=== PATIENT | female | born 1980 | race Caucasian/White ===

== ENCOUNTER 2022-10-22 09:42 | Inpatient (IN) | payer OTHER, SELFPAY ==
[2022-10-15 08:28] VITALS: BMI 23.5
[2022-10-22] VITALS (18 sets, daily range): BP systolic 126–186; BP diastolic 75–103; PULSE 67–90; RESP 12–22; TEMP 36.3–36.7; O2SAT 95–99; BMI 23.5
[2022-10-22] MEDS: LACTATED RINGERS 1,000 ML 42 ML IV ×2 (10:38→13:01)
--- NOTE | 2022-10-22 11:17 | PM.PREOP ---
Pre-operative Note COVID-19 Criteria for continued procedure: Expected advancement of disease process, Possibility delay results in more complex future surgery or treatment, Increased loss of function, Continuing or worsening of significant or severe pain, Deterioration of the patient's condition or overall health and Delay expected to result in less-positive ultimate med/surg outcome Interval Note History & Physical reviewed/Exam performed by Physician: Yes Changes to H&P: No
[2022-10-22] MEDS: CEFAZOLIN 2 GM/100 ML PREMIX 100 ML IV ×2 (11:48→20:22)
--- NOTE | 2022-10-22 12:12 | SUR.OPER ---
Supine, head on gel donut. Arms padded with gel pads, tucked at sides, towel roll under shoulders. Safety belt at thigh. Legs uncrossed.
[2022-10-22] MEDS: BUPIVACAINE 0.25% W/ EPI (PF) 10 ML VIAL INJ (12:17)
--- NOTE | 2022-10-22 13:53 | PM.OP.1 ---
Operative Date/Time/Diagnoses Date of procedure: 10/22/22 Time of procedure: 12:00 Pre-op diagnosis: 1. C5-6, C6-7 spinal stenosis 2. Cervical spondylosis with radiculopathy Post-op diagnosis: same Procedure & Clinicians Procedure: 1. C5-6 C6-7 anterior cervical diskectomy and fusion 2. C5-6 C6-7 anterior interbody cage placement 3. C5-6 C6-7 anterior instrumentation with plate and screw placement in C5-C6 and C7 vertebrae 4. Utilization of microsurgical technique and operating microscope Same procedure as scheduled: Yes Indications: Patient has been having chronic neck pain and worsening cervical radiculopathy. Patient failed multiple conservative management with worsening pain weakness and numbness in her upper extremity. Patient has been having difficulty performing activity of daily living. After discussing risks benefits of treatment options, patient elected proceed with surgery. Surgeon: Andres Stroud Superintendent Plant: Kamla Platt Click Yes if Unassisted: Yes Anesthesia Type: General Operative Notes Closure Type: primary Specimen(s): none sent Prosthetic devices, grafts, tissues, transplants, or devices: Globus Extend Plate, Hedron C cages Estimated Blood Loss (mL): 5 Blood products transfused: none Procedure in detail: Patient was seen in the preoperative area. Risks and benefits of the surgery was discussed with the patient. Operative consent was obtained and placed in the chart. Patient was then taken to the operative room. Prophylactic antibiotic was given less than 0.5 hr prior to skin incision. General anesthesia was administered. Patient was placed into a supine position on her radiolucent table. Bilateral shoulders were taped down to allow proper C-arm imaging. Anterior cervical area was prepped and draped in a sterile fashion. Time-out was performed at this time. Using lateral C-arm imaging, the level between C5 and C7 was identified and marked on patient's neck. A oblique incision from midline towards medial border of sternocleidomastoid muscle was made. The platysma muscle was incised in line with skin incision. Metzenbaum scissor was used to develop the plane between the medial border of sternocleidomastoid d and the strap muscles medially. The carotid sheath and its contents were identified and protected behind the hand-held retractor during the entire case. The plane between the carotid sheath and strap muscles was developed with Metzenbaum scissors. Dissection was made down to the level of the anterior cervical fascia. Longus colli muscle was incised on the anterior aspect of vertebral bodies bilaterally from C5-C7. Spinal needle was placed into the C5-6 disc space and confirmed with lateral C-arm imaging. Using microsurgical technique and operative microscope, anterior cervical diskectomy was performed at C5-6 and C6-7 level. This was done by removing the disc material, removing the anterior and posterior osteophytes posterior longitudinal ligaments along with performing bilateral foraminotomies at both levels. Patient was found to have severe central and foraminal stenosis at both levels. Patient's stenosis was fully decompressed after decompression was completed. After the diskectomy was completed, 2 anterior interbody cages were obtained. The cages were packed with globus via cell bone grafting material. One cage each along with the bone grafting material was then packed into the interbody spaces from C5-C7 with one cage into each interbody level. After the cages were placed, the anterior cervical plate was stabilized to the C5-C7 vertebrae using 2 screws at each each level. Total 6 screws were placed. After confirming placement of the hardware with AP and lateral C-arm imaging, the screws were locked into the plate using the locking mechanism and torque limiting screwdriver. After the hardware was placed and confirmed with AP and lateral C-arm imaging, the wound was irrigated with sterile normal saline. The platysma muscle and the subcutaneous tissue was closed with 2-0 Vicryl. The skin was closed with 4-0Monocryl and Steri-Strips. Patient tolerated the procedure well. Patient was transferred recovery room in stable condition. There were no complications. Complications: none Post-operative Condition: stable Disposition: PACU Plan for aftercare: Admit to inpatient hospital
--- NOTE | 2022-10-22 14:03 | DI.RAD.S_ITS ---
PROCEDURE: XR CERVICAL SPINE 2V OR 3V INDICATIONS: C5-6,C6-7 ACDF TECHNIQUE: 2 low resolution fluoroscopic intraoperative spot films were obtained COMPARISON: None. FINDINGS: Submitted images show discectomy and fusion with anterior plate and screw hardware at C5-6 and C6-7 is labeled in the exam history IMPRESSION: Fluoroscopic guidance Approved by: Jasiel Rodriguez M.D. on 10/22/2022 at 16:13
[2022-10-22] MEDS: LABETALOL 20 MG/4 ML SYRINGE 5 MG IV ×4 (14:49→15:05)
--- NOTE | 2022-10-22 15:29 | SUR.PHASEI ---
Notified Jax Olivo CRNA of blood pressure 155/98 after 20mg labetolol. No new orders. Cleared to be transfered to her room.
[2022-10-22] MEDS: ACETAMINOPHEN 325 MG TABLET 650 MG PO (17:54)
[2022-10-22] MEDS: hydrOXYzine pamoate 25 MG CAPSULE PO (20:21)
[2022-10-22] MEDS: ONDANSETRON 4 MG/2 ML INJ IV (20:21)
--- NOTE | 2022-10-22 21:04 | DI.RAD.S_ITS ---
PROCEDURE: XR CHEST 1V INDICATIONS: Chest Pain TECHNIQUE: One view of the chest was acquired. COMPARISON: None. FINDINGS: Surgical changes and devices: None. Lungs and pleura: Lungs are clear. No pleural effusions or pneumothorax. Mediastinum: Mediastinal contours appear normal. Heart size is normal. Bones and chest wall: No suspicious bony lesions. Overlying soft tissues appear unremarkable. IMPRESSION: 1. No acute cardiopulmonary disease. Dictated by: Matthias Ramirez M.D. on 10/22/2022 at 22:17 Approved by: Matthias Ramirez M.D. on 10/22/2022 at 22:29
[2022-10-22] MEDS: LACTATED RINGERS 1,000 ML 125 ML IV (21:10)
--- NOTE | 2022-10-22 21:21 | DI.CT.S_ITS ---
PROCEDURE: CT ANGIO CHEST PE PROTOCOL INDICATIONS: Chest pain TECHNIQUE: After the administration of intravenous contrast, 2 mm thick sections acquired from the pulmonary apices to the posterior costophrenic angles. 3-dimensional maximum intensity projection (MIP) coronal and sagittal reformats were then acquired through the thorax. For radiation dose reduction, the following was used: automated exposure control, adjustment of mA and/or kV according to patient size. COMPARISON: None. FINDINGS: Image quality: Excellent. Pulmonary arteries: Pulmonary arteries are normal in size, and demonstrate no intraluminal filling defects to suggest central pulmonary embolism. Lower Neck: There are postsurgical changes within the visualized neck including prevertebral and left-sided fluid and edema as well as subcutaneous emphysema. Thyroid: Visualized thyroid demonstrates no discrete nodules. Axillae: No lymphadenopathy by size criteria. Chest Wall: Unremarkable. Bones: There are postsurgical changes consistent with ACDF in the lower cervical spine. Visualized osseous structures demonstrate no suspicious lesions. Lungs and Airways: No acute consolidation. There is mild dependent atelectasis. There are mild paraseptal emphysematous changes. A few bilateral pulmonary nodules are present. These include a peripheral left lower lobe nodule measuring up to 0.9 cm extending to the major fissure on series 6, image 182. A subpleural right middle lobe nodule measures up to 0.5 cm on series 6, image 173. Subpleural left upper lobe 0.5 cm nodule on series 6, image 153. Subpleural linear nodules demonstrated medially in the left upper lobe measuring 0.5 cm on series 6, image 129. A few additional scattered smaller nodules are also demonstrated in the left upper lobe. The trachea and central airways are patent. Pleura: No pneumothorax or pleural effusions. Heart: Heart size is normal. No pericardial effusion. Thoracic Vessels: The thoracic aorta is normal in size. Mediastinum and Tami: A small amount of pneumomediastinum is demonstrated superiorly consistent with sequelae of postsurgical changes in the neck. No lymphadenopathy by size criteria. Esophagus: No wall thickening. No hiatal hernia. Abdomen: Visualized upper abdominal solid organs appear normal in the early arterial phase of enhancement. IMPRESSION: 1. No evidence of pulmonary embolism. 2. Mild dependent atelectasis without acute consolidation. 3. Mild centrilobular emphysematous changes. 4. Multiple bilateral pulmonary nodules measuring up to 0.9 cm in the left lower lobe. The findings are nonspecific and follow-up is recommended in 3-6 months to demonstrate stability. 5. Postsurgical changes in the neck and superior mediastinum consistent with recent ACDF in the lower cervical spine. Dictated by: Matthias Ramirez M.D. on 10/22/2022 at 22:38 Approved by: Matthias Ramirez M.D. on 10/22/2022 at 22:44
[2022-10-22 22:18] LABS: Add Manual Diff / Slide Review NO; Basophils Absolute Auto 200 /uL (0-100); Basophils Percent Auto 1.4 % (0-2); Eosinophils Absolute Auto 0 /uL (0-450); Hematocrit 38.4 % (36-46); Hemoglobin 13.1 g/dL (12.0-16.0); Lymphocytes Absolute Auto 600 /uL (1100-4500); Lymphocytes Percent Auto 4.2 % (25-40); Mean Corpuscular HGB Conc 34.1 % (30-36); Mean Corpuscular Hemoglobin 31.9 PG (26-34); Mean Corpuscular Volume 93.3 fL (80-100); Monocytes Absolute Auto 500 /uL (0-900); Monocytes Percent Auto 3.1 % (3-14); Neutrophils Absolute Auto 13500 /uL (1500-7000); Neutrophils Percent Auto 91.3 % (50-75); Platelet Count 263 X10^3/uL (150-400); Red Blood Cell Count 4.11 X10^6/uL (4.0-5.2); Red Cell Distribution Width 13.7 % (11.6-14.8); White Blood Cell Count 14.8 X10^3/uL (4.5-11.0)
[2022-10-22 22:31] LABS: Albumin Globulin Ratio 1.3 (1.0-2.8); Alkaline Phosphatase 55 U/L (38-126); Aspartate Aminotransferase 38 IU/L (14-36); BUN Creatinine Ratio 16.7 (6-22); Bilirubin Total 0.4 mg/dL (0.2-1.3); Blood Urea Nitrogen 8 mg/dL (7-17); Calcium 8.6 mg/dL (8.4-10.2); Carbon Dioxide 23 mmol/L (22-32); Chloride 103 mmol/L (98-107); Estimated Glomerular Filt Rate > 60 mL/min (>60); Glucose 159 mg/dL (70-100); HEMOLYSIS < 15 (0-50); Sodium 134 mmol/L (137-145)
[2022-10-22 22:37] LABS: Alanine Aminotransferase 37 IU/L (<35)
[2022-10-22 22:42] LABS: Troponin I < 0.012 ng/mL (0.01-0.034)
[2022-10-23 04:55] VITALS: BP 155/88; PULSE 93; RESP 18; TEMP 37.2; O2SAT 96
[2022-10-23] MEDS: CEFAZOLIN 2 GM/100 ML PREMIX 100 ML IV (04:56)
[2022-10-23] MEDS: LACTATED RINGERS 1,000 ML 125 ML IV (04:58)
--- NOTE | 2022-10-23 06:03 | PC.NURSE ---
Pt became tearful, anxious, and nauseous with several episodes of emesis around 1999. Gave zofran and vistril. ~2044 pt began complaining of 5/10 burning, heavy pressure in her chest and out toward her shoulders, feeling like something is wrong. Pt was dizzy, diaphoretic, and hypertensive, continuing to be nauseous, vomiting and anxious. Dr Kuhn notified, orders received.
[2022-10-23 08:38] VITALS: BP 141/82; PULSE 100; RESP 16; TEMP 36.9; O2SAT 97
--- NOTE | 2022-10-23 09:47 | PM.DS.1 ---
History of Present Illness History of Present Illness Date Patient Seen: 10/23/22 Time Patient Seen: 09:47 Chief complaint: Neck pain Narrative: Neck pain is [id number]. Denies fever or chills. No nausea or vomiting. No shortness of breath or difficulty swallowing. Patient has her son home and available to assist her. Discharge Providers Provider Date of admission: 10/22/22 09:42 Discharge Date: 10/23/22 Primary care physician: Edwina Mcclain MD Consults: 10/22/22 15:59 Consult to Occupational Therapy Evaluate & Treat Comment: Physician Instructions: Evaluate and treat Consult to Physical Therapy Evaluate & Treat Comment: Physician Instructions: Evaluate and Treat Discharge provider: Abel Doyle PA-C Summary Hospital Course Discharge Diagnosis: 1. C5-6, C6-7 spinal stenosis 2. Cervical spondylosis with radiculopathy Hospital Course: 1.? C5-6 C6-7 anterior cervical diskectomy and fusion 2.? C5-6 C6-7 anterior interbody cage placement 3.? C5-6 C6-7 anterior instrumentation with plate and screw placement in C5-C6 and C7 vertebrae 4.? Utilization of microsurgical technique and operating microscope Same procedure as scheduled: Yes Indications: Patient has been having chronic neck pain and worsening cervical radiculopathy. Patient failed multiple conservative management with worsening pain weakness and numbness in her upper extremity.? Patient has been having difficulty performing activity of daily living.? After discussing risks benefits of treatment options, patient elected proceed with surgery. Surgeon: Andres Stroud Rehabilitation Attendant: Kamla Platt Click Yes if Unassisted: Yes Anesthesia Type: General Operative Notes Closure Type: primary Specimen(s): none sent Prosthetic devices, grafts, tissues, transplants, or devices: Globus Extend Plate, Hedron C cages Estimated Blood Loss (mL): 5 Blood products transfused: none Patient admitted to the hospital for the above-mentioned procedure. Patient underwent cervical fusion October 22, 2022. Patient back in her room recovering well as in stable condition. Soft collar for comfort. Multimodal pain management. Limit bending, twisting, lifting. Discharge home today in stable condition. Exam Vital Signs (past 8 hours): - 10/23/22 04:55 10/23/22 08:38 Temperature 98.9 F 98.4 F Pulse Rate 93 H 100 H Respiratory Rate 18 16 Blood Pressure 155/88 H 141/82 H Pulse Oximetry 96 97 Oxygen Flow Rate 0 Oxygen Delivery Method Room Air Oxygen Flow Rate 0 Narrative Exam Narrative: Pleasant 41-year-old female resting comfortably in bed in no apparent distress. Soft collar in place. Dressing is Clean, dry, intact.. Neurovascular status is intact bilateral upper extremities. Const General: cooperative and comfortable Nutritional Appearance: average body habitus Orientation: alert Resp Effort & Inspection: normal respiratory effort and able to speak in complete sentences Objective Labs 10/22/22 21:55 10/22/22 21:55 Labs: Laboratory Results - last 24 hr 10/22/22 10/22/22 10/22/22 21:55 21:55 21:55 WBC 14.8 H RBC 4.11 Hgb 13.1 Hct 38.4 MCV 93.3 MCH 31.9 MCHC 34.1 RDW 13.7 Plt Count 263 Neut % (Auto) 91.3 H Lymph % (Auto) 4.2 L [place] % (Auto) 3.1 Eos % (Auto) 0.0 L Baso % (Auto) 1.4 Neut # (Auto) 98161 H Lymph # (Auto) 600 L [place] # (Auto) 500 Eos # (Auto) 0 Baso # (Auto) 200 H Sodium 134 L Potassium 4.0 Chloride 103 Carbon Dioxide 23 BUN 8 Creatinine 0.48 L Estimated GFR > 60 BUN/Creatinine Ratio 16.7 Glucose 159 H Calcium 8.6 Total Bilirubin 0.4 AST 38 H ALT 37 H Alkaline Phosphatase 55 Troponin I < 0.012 Total Protein 7.0 Albumin 4.0 Globulin 3.0 Albumin/Globulin Ratio 1.3 PFSH Medical History Anxiety Depression Elective Impingement of left shoulder Pre-diabetes PTSD (post-traumatic stress disorder) Rheumatoid arthritis Spinal stenosis, cervical region Vitamin D deficiency Surgical History History of ear surgery (2005) Hx of sinus surgery (~2013) S/P excision of lipoma (06/12/22) S/P LASIK surgery of both eyes (2010) Social History household members: children Smoking Status: Current every day smoker alcohol intake: current Discharge Assessment & Plan Assessment and Plan Assessment: Patient progressing as expected status post cervical fusion Plan of Treatment: Multimodal pain management Soft collar for comfort, limit bending, twisting, lifting Discharge home today in stable condition. Discharge Plan Discharge Plan Patient Disposition: Home Discharge orders & Medications Prescriptions: New acetaminophen 325 mg Tablet 650 mg PO Q6H PRN (Reason: Fever/Mild Pain (1-3)) Qty: 60 0RF polyethylene glycol 3350 17 gram Powder In Packet 17 gm PO DAILY PRN (Reason: Constipation) Qty: 10 0RF oxycodone 5 mg Tablet 5 mg PO Q3H PRN (Reason: Pain, Moderate (4-6)) Qty: 40 0RF Continued methotrexate sodium 2.5 mg tablet 15 mg PO WEEKLY folic acid 1 mg tablet 1 mg PO DAILY ergocalciferol (vitamin D2) 1,250 mcg (50,000 unit) capsule 1,250 mcg PO WEEKLY M- Plus 27 mg iron- 1 mg tablet 1 tab PO DAILY Follow up/Referrals: Edwina Mcclain MD [Primary Care Provider] - Andres Stroud MD [Physician] - As previously scheduled (Follow up with Kamla Platt PA-C, on 11/05/2022 @ 1:00 pm at [facility] office in [place].) Diet/Activity/Treatments Diet: Diet as Tolerated Diet comment: It is normal to have a sore throat and some swallowing difficulty. Activity: Soft collar for comfort; recommend wearing when you are sitting for long periods of time or up walking around. May take off to eat, shower, and sleep, although some people feel more comfortable wearing it while sleeping. No lifting more than 10 pounds. Cold/Heat Therapy: Heating pad to back of neck and between shoulder blades as needed for pain. Skin/Wound/Dressing Care Report to your healthcare provider any signs of infection, such as:: chills, fever, night sweats, unusual drainage and unusual redness Dressing: May shower. If dressing becomes wet inside, may remove, but leave steri-strips in place until follow up in office. Visit Report/Discharge Packet Instructions: DI for Prescription Opioid Use, DI for Anterior Cervical Discectomy and Fusion Stand Alone Forms: Patient Portal/API, Stroke Signs & Symptoms, Surgery Discharge Discharge Data Primary Care Provider: Edwina Mcclain
--- NOTE | 2022-10-23 11:18 | PT.IIE ---
Current Diagnoses Other spondylosis with myelopathy, cervical region (10/22/22) Spinal stenosis, cervical region (10/22/22) Surgery Performed Operation Date: 10/22/22 11:45 Actual Procedures p C5-6, C6-7 ACDF w. anterior instrumentation - Andres Stroud MD Surgical History (Last Reviewed 10/23/22 @ 09:49 by Abel Doyle PA-C) History of ear surgery (2005) Hx of sinus surgery (~2013) S/P excision of lipoma (06/12/22) S/P LASIK surgery of both eyes (2010) Medical History (Last Reviewed 10/23/22 @ 09:49 by Abel Doyle PA-C) Anxiety Depression Elective Impingement of left shoulder Pre-diabetes PTSD (post-traumatic stress disorder) Rheumatoid arthritis Spinal stenosis, cervical region Vitamin D deficiency Physical Therapy Inpatient Evaluation/Re-Eval M1 PT/OT-IP Prior Functional Status Start: 10/23/22 14:35 Freq: NEEDED Status: Active Protocol: Document 10/23/22 11:18 AB (Rec: 10/23/22 14:43 AB [id number]) Medical Review Prior Functional Status Medical History Reviewed Yes Communication able to make needs known Mobility and Gait pt stated that she is indpeendent with all mobilities and ambulation without AD Social History Household Members children Living Arrangements House Number of Floors (Floors) One Floor Number of Stairs To Enter/Railing? 5 steps B rails to enter Home Environment Standard Height Toilet,Tub/ Shower Additional Social History Comment pt has an 18 y/o son that can assist her M2 PT-IP Current Condition Start: 10/23/22 14:35 Freq: NEEDED Status: Active Protocol: Document 10/23/22 11:18 AB (Rec: 10/23/22 14:43 AB [email or web address]) Physical Therapy Current Condition Current Condition Evaluation Date 10/23/22 Treatment Diagnosis s/p C5-6, C6-7 ACDF; difficulty in walking Onset Date 10/22/22 M3 PT-IP Subjective Start: 10/23/22 14:35 Freq: NEEDED Status: Active Protocol: Document 10/23/22 11:18 AB (Rec: 10/23/22 14:43 AB [email or web address]) Subjective Physical Therapy Visit Type Type Initial Evaluation Visit Start Time 11:18 Visit Stop Time 11:33 Total Visit Minutes 15 Number of OFFICE ADMINISTRATOR Visits 0 Physical Therapy Visit Comments Patient Comments agreeable to do PT Therapy Pain Assessment Pain When Pain Assessed At Rest Pain Present Pain Present Pain Reported Location Neck Intensity 4 Scale Used Numeric (0 - 10) Pain Management Techniques Modification of Treatment,Re- positioning,Timing of Activity with Medications M4 PT-IP Mobility and Gait Start: 10/23/22 14:35 Freq: NEEDED Status: Active Protocol: Document 10/23/22 11:18 AB (Rec: 10/23/22 14:43 AB [email or web address]) PT-Bed Mobility Assessment Rolling Type of Rolling Log Rolling Level of Assist Standby Assistance Supine to Sit Supine to Sit Standby Assistance PT-Transfer Assessment Sit to and From Stand Sit to and from Stand Standby Assistance Equipment Transfer Assistive Device None,Gait Belt Orthotic/Prosthetic Devices or Brace: Yes Comments Mobility Comments pt supine in bed. educated on cervical precautions and log roll bed mobility. pt completed supine to sit log roll SBA and ambulated towards the sink without AD SBA. educated on collar management and pt able to don/doff collar . pt ambulated in the hallway without AD SBA. pt presents with guarded gait but without LOB. completed up/down steps using B rails SBA. ambulated back to her room SBA . Son in room with pt. pt sat on the chair. table within reach. NAC in room to assist pt with d/c Gait Assessment Gait Gait Assistance Required: Standby Assistance Distance (Feet) 250 Able to Maintain Weight Bearing Status Yes During Gait Assistive Devices Assistive Device None,Gait Belt Orthotic/Prosthetic Devices or Brace: Yes Factors Limiting Gait Function Factors Limiting Gait Function Decreased Activity Tolerance, Decreased Strength,Limited Range of Motion,Pain,Poor Balance,Poor Safety Awareness Stair Climbing Assessment Evaluation Level of Assist On Stairs Standby Assistance Devices Stair Climbing Assistive Devices Left Railing,Right Railing Technique/Endurance Stair Climbing Direction Ascend and Descend Stair Climbing Technique Step to Step Number of Steps Climbed 3 Query Text: Stair Climbing Set # Repetitions (reps) 1 PT-Balance Assessment Sitting Balance and Reactions Static Sitting Balance Ability Normal Dynamic Sitting Balance Ability Normal Standing Balance and Reactions Static Standing Balance Ability Good Dynamic Standing Balance Ability Good Device Used without AD M5 PT-IP Objective Assessments Start: 10/23/22 14:35 Freq: NEEDED Status: Active Protocol: Document 10/23/22 11:18 AB (Rec: 10/23/22 14:43 AB [email or web address]) Orientation Orientation/Cognition Level of Alertness Alert Orientation Name,Place,Situation Language Function Ability No Deficits Noted Safety Awareness Understands Safety Issues Memory Description No Deficits Noted Gross Range of Motion Lower Extremity ROM Assessment Within Functional Limits Strength Lower Extremity Strength Assessment Within Functional Limits Muscle Tone Muscle Tone WNL Yes M6 PT-IP Treatment Start: 10/23/22 14:35 Freq: NEEDED Status: Active Protocol: Document 10/23/22 11:18 AB (Rec: 10/23/22 14:43 AB [email or web address]) Physical Therapy Treatment Education Education Provided Precautions,Weight Bearing Status,Post-Op Packet,Safety M7 PT-IP Assessment and Plan Start: 10/23/22 14:35 Freq: NEEDED Status: Active Protocol: Document 10/23/22 11:18 AB (Rec: 10/23/22 14:43 AB [email or web address]) PT Summary Assessment and Plan Potential Rehabilitation Potential Good Status of Condition at Evaluation Stable Summary Impairments Pain,ROM,Strength,Balance, Coordination,Sensation,Tone, Cognition,Bed Mobility, Transfers,Gait,Activity Tolerance Assessment Summary pt s/p C5-6, 6-7 ACDF POD1. pt requiring SBA with ambulation without AD and plans to go home and will have her son assist her as needed. pt may go home when medically stable. Goals Bed Mobility Goal Independent Transfer Goal Independent Gait Goal Independent Gait Distance 300 Other Goals up/down 5 steps B rails mod I Days to Meet Goals 3 Frequency of Treatment Frequency Of Treatment Twice a Day Treatment Plan Physical Therapy Treatment Plan Bed Mobility Training,Transfer Training,Gait Training, Therapeutic Exercise,Balance Retraining,Post Op Education, Discharge Planning,Hot or Cold Pack,Neuromuscular Re-ed, Coordination Retraining,Manual Therapy Precautions Cervical Spine Precautions Soft Collar for Comfort,No Heavy Lifting,Log Roll Recommendations To Nursing Amount of Assist Needed Standby Assistance Discharge Recommendations PT Discharge Recommendations Home with Assistance Transportation Needs at Discharge Private Vehicle
--- NOTE | 2022-10-23 11:46 | PC.NURSE ---
IV removed. Discussed signs and symptoms of infection, follow up care, activity, soft diet, and narcotics. No further questions. 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
--- NOTE | 2022-10-23 14:23 | CM.DANOTE ---
Patient is a 41 yo female who was admitted on 10/22/22 for Cervical Surg. Pt has [employer] for insurance and her PCP is Edwina Mcclain. EMR was reviewed. Per Ortho PA, pt tolerated procedure well and had some chest pains but r/o by normal CT and medically stable to d/c home after PT/OT eval. Per PT/OT, pt cleared for d/c to home and outpt f/u. Per RN, pt's son bedside and will provide assist for pt at d/c and transport her home. Pt is a retired and active and independent at baseline and lives in [place] with her young adult son and no DME for ambulation at baseline. Pt does not anticipate any needs at d/c and preference is home today. Plan: Patient to d/c home today via son POV and assist and outpt f/u with Ortho and no further SW needs at this time. OG Espino Discharge Planning/Care Management Pre-Anesthesia Assessment Start: 10/15/22 08:28 Freq: Status: Discharge Protocol: Document 10/15/22 08:28 [facility] (Rec: 10/15/22 08:34 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 No Height 170.18 cm Weight 68.039 kg Body Mass Index (BMI) 23.5 Hearing Ability Normal Visual Impairment No Limitations Visual Assist None Dentition Type Teeth, Natural Present Barriers to Learning None Hx Anesthesia Reactions No Hx Family Anesthesia Reaction No Hx Malignant Hyperthermia No Hx Blood Transfusions No Anesthesia Review Requested No Hazardous Material Technician No alcohol intake former Smoking Status Current every day smoker Tobacco type cigarettes Substance Use Type marijuana Comment Pt advised not to smoke marijuana 24 hours prior Pain Present Pain Reported Musculoskeletal Symptoms Limited Range of Motion,Neck Pain,Numbness,Radiating Pain into Limb,Tingling History of Falling (Recent or History of No ) Patient is completely paralyzed or No completely immobile Mental Status Oriented to own ability Is patient on oxygen? No Does patient have [place]/SOB No Hx Sleep Apnea No Currently Taking a Beta Sofia No Can You Climb a Flight of Stairs Without Yes SOB Hx Chest Pain No Hx SOB No Hx Syncope or Dizziness No Anti-Coagulant Therapy No Has a Screen Operator No Cardiac Testing No Hx Pacemaker/ICD No Pacemaker Rep Required? No Cardiac Clearance Received Not Applicable Diet Type At Home Regular Dysphagia No Gastrointestinal Symptoms None Chronic UTI No Bladder Pattern Incontinent, Stress Urinary Catheter Present No Hx Urinary Self Catheterization No Diabetes No: Pre-diabetes Patient No Lactating No Hx Drug Resistant Organism No Presence of External or Internal Medical No Devices Have you had any close contact with No someone diagnosed with COVID-19? Received a COVID vaccine? Yes Received all doses? No Marital Status Single Lives With children Current Living Arrangements House Number of Floors (Floors) One Floor Support System Child/Children Comment Son lives w/pt and will assist with care at DC Does the Patient Have Assistance After Yes Surgery Patient Discharge Plan Description Return Home Comment Pt advised overnight length of stay per surgeon Feels Safe in Current Environment Yes Been Physically Hurt or Threatened By a No Person in Current Environment Do you have thoughts of harming yourself None or others? Are you currently considering suicide? No Do you have a plan to hurt yourself or No Plan others? Do You Have Any Spiritual Beliefs That No May Affect Your HC Choices? Do You Have Any Cultural Practices That No May Affect Your HC Choices? Who Can We Speak to About Patient's Care Family, friends Identifying Code for Release of Patient Declines to issue Information Health Care Proxy/Next of Kin Jacqueline (mom) Health Care Proxy Emergency Contact Name Aristides (son) Emergency Contact Advance Directives? No Power of Journeyman Level Acoustic Analyst Yes Power of Journeyman Level Acoustic Analyst Name Jacqueline (garima) Power of Journeyman Level Acoustic Analyst PAC Instructions Medications to take/avoid, Nasal antibiotic,No ETOH/ petroleum product on skin DOS, NPO,Pre-surgical wash,Sensory aids,Sturdy shoes/comfortable clothes,Do not bring valuables and remove jewelry
== END 2022-10-23 11:45 | disposition home or self-care (01) | DRG 472 ==
PROVIDERS: Orthopaedic Surgery; Admitting Provider Orthopaedic Surgery Orthopaedic Surgery of the Spine; PCP Family Medicine; Referring Provider Orthopaedic Surgery Orthopaedic Surgery of the Spine; Visit Provider Orthopaedic Surgery Orthopaedic Surgery of the Spine
PROC: 0RG20A0 Fusion of 2 or more Cervical Vertebral Joints with Interbody Fusion Device, Anterior Approach, Anterior Column, Open Approach (ICD-10-PCS; principal; 2022-10-22 11:45)
DX: M48.02 Spinal stenosis, cervical region (principal); M47.12 Other spondylosis with myelopathy, cervical region; M06.9 Rheumatoid arthritis, unspecified; F17.210 Nicotine dependence, cigarettes, uncomplicated; Z79.631 Long term (current) use of antimetabolite agent
CPT/HCPCS: 71045; 71275; 72040; 76000; 80053; 84484; 85025; 93005; 97161; C1713; J0330; J0690; J1100; J1170; J2405; J2704; J3010; Q9967